=== PATIENT | female | born 2000 | race African-American/Black ===

== ENCOUNTER 2019-01-14 09:52 | Emergency (ER) | payer BC ==
[~2019-01-14] VITALS: Ht 170.2 cm; Wt 77.1 kg
--- NOTE | 2019-01-14 10:57 | PHYS DOC ---
Past Medical History Past Medical History: Other Additional Past Medical Histor: KIDNEY INFECTIONS Past Surgical History: No Surgical History Alcohol Use: Rarely Drug Use: None Adult General Chief Complaint Chief Complaint: HEADACHE HPI HPI Patient is a 18 year old female who presents with complaining of headache. Patient complaining of intermittent episodes of frontal headache for the last 3 or 4 days that usually happens with bending her head as a pressure pain with one episode of nausea. Patient denies blurred vision, focal neuro deficit, fever and chills, history of head injury, history of the same headache or family history of migraine headache. Patient states the pain radiated to anterior side of her neck. Patient rated her pain 6/10 and does not want to have pain medication in ER. Review of Systems Review of Systems Constitutional: Denies fever or chills [] Eyes: Denies change in visual acuity, redness, or eye pain [] HENT: Denies nasal congestion or sore throat [] Respiratory: Denies cough or shortness of breath [] Cardiovascular: No additional information not addressed in HPI [] GI: Denies abdominal pain, nausea, vomiting, bloody stools or diarrhea [] : Denies dysuria or hematuria [] Musculoskeletal: Denies back pain or joint pain [] Integument: Denies rash or skin lesions [] Neurologic: Reports headache, denies focal weakness or sensory changes [] Endocrine: Denies polyuria or polydipsia [] All other systems were reviewed and found to be within normal limits, except as documented in this note. Allergies Allergies Allergies Coded Allergies Type Severity Reaction Last Updated Verified ceftriaxone Allergy Unknown itching, throat swelling 01/14/19 Yes Physical Exam Physical Exam Constitutional: Well developed, well nourished, no acute distress, non-toxic appearance. [] HENT: Normocephalic, atraumatic, bilateral external ears normal, oropharynx moist, no oral exudates, nose normal. [] Eyes: PERRLA, EOMI, conjunctiva normal, no discharge. [] Neck: Normal range of motion, no tenderness, supple, no stridor, no meningeal sign. [] Cardiovascular:Heart rate regular rhythm, no murmur [] Lungs & Thorax: Bilateral breath sounds clear to auscultation [] Abdomen: Bowel sounds normal, soft, no tenderness, no masses, no pulsatile masses. [] Skin: Warm, dry, no erythema, no rash. [] Back: No tenderness, no CVA tenderness. [] Extremities: No tenderness, no cyanosis, no clubbing, ROM intact, no edema. [] Neurologic: Alert and oriented X 3, normal motor function, normal sensory function, no focal deficits noted. [] Psychologic: Affect normal, judgement normal, mood normal. [] Current Patient Data Vital Signs Vital Signs Date Time Temp Pulse Resp B/P (MAP) Pulse Ox O2 Delivery O2 Flow Rate FiO2 01/14/19 11:25 75 14 100 01/14/19 10:20 98.2 120/64 (82) Room Air 98.2 Lab Values Laboratory Tests Test 01/14/19 10:26 POC Urine HCG, Qualitative Hcg negative (Negative) EKG EKG [] Radiology/Procedures Radiology/Procedures [facility] [address] [place] [address] IMAGING REPORT Signed PATIENT: WILNER ARMSTRONG ACCOUNT: [id number] : 2000 LOCATION: ER AGE: 18 SEX: F EXAM STATUS: REG ER ORD. PHYSICIAN: KRISTI PUENTES MD REASON: headache without head injury PROCEDURE: CT HEAD WO CONTRAST CT HEAD WO CONTRAST Indication: Headache, no injury. Exposure: One or more of the following individualized dose reduction techniques were utilized for this examination: 1. Automated exposure control 2. Adjustment of the mA and/or kV according to patient size 3. Use of iterative reconstruction technique. Technique: Standard imaging without intravenous contrast. No evidence of acute intracranial hemorrhage, mass effect, midline shift or abnormal extra-axial fluid collection. Leon-white matter distinction is intact. Ventricles and sulci are symmetric. The orbits are symmetric. No evidence of prominent scalp swelling. The visualized sinuses are clear. No evidence of acute skull abnormality. IMPRESSION: No evidence of acute intracranial hemorrhage. Electronically signed by: Maikel Hollis MD (01/14/2019 11:18 AM) [facility] DICTATED and SIGNED BY: MAIKEL HOLLIS MD DATE: 01/14/19 6923 Course & Med Decision Making Course & Med Decision Making Pertinent Imaging studies reviewed. (See chart for details) Evaluation of patient in ER showed 18-year-old female patient complaining of headache for few days. Patient had unremarkable physical exam and CT of head. 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 Usama Disclaimer Dragon Disclaimer This electronic medical record was generated, in whole or in part, using a voice recognition dictation system. Departure Departure Impression: Primary Impression: Headache Additional Impression: Sinusitis Disposition: HOME, SELF-CARE (at 1129) Condition: STABLE Referrals: NO PCP (PCP) Patient Instructions: Headache and Allergies, Sinusitis Additional Instructions: Drink plenty of liquids Follow-up with your primary care physician in 3-5 days Return to ER if not getting better Follow-up with your eye specialists regarding checking your eyes and possibly changing your eyeglasses Scripts Ibuprofen (IBUPROFEN) 800 Mg Tablet 800 MG PO PRN Q8HRS PRN for INFLAMMATION, #20 TAB Prov: KRISTI PUENTES MD 01/14/19 Amoxicillin (AMOXICILLIN) 500 Mg Capsule 1 CAP PO Q8HRS for infection, #21 CAP Prov: KRISTI PUENTES MD 01/14/19 Problem Qualifiers Primary Impression: Headache Headache type: unspecified Headache chronicity pattern: unspecified pattern Intractability: not intractable Qualified Codes: R51 - Headache Additional Impression: Sinusitis Sinusitis location: unspecified location Chronicity: unspecified Qualified Codes: J32.9 - Chronic sinusitis, unspecified KRISTI PUENTES MD Jan 14, 2019 10:57
--- NOTE | 2019-01-14 11:21 | RAD ---
CT HEAD WO CONTRAST Indication: Headache, no injury. Exposure: One or more of the following individualized dose reduction techniques were utilized for this examination: 1. Automated exposure control 2. Adjustment of the mA and/or kV according to patient size 3. Use of iterative reconstruction technique. Technique: Standard imaging without intravenous contrast. No evidence of acute intracranial hemorrhage, mass effect, midline shift or abnormal extra-axial fluid collection. Leon-white matter distinction is intact. Ventricles and sulci are symmetric. The orbits are symmetric. No evidence of prominent scalp swelling. The visualized sinuses are clear. No evidence of acute skull abnormality. IMPRESSION: No evidence of acute intracranial hemorrhage. Electronically signed by: Maikel Hollis MD (01/14/2019 11:18 AM) [facility]
[2019-01-14 11:25] VITALS: BP 101/61
[2019-01-14] MEDS ORDERED: AMOX500C PO (11:31)
[2019-01-14] MEDS ORDERED: IBUP-1060 PO (11:31)
== END 2019-01-14 11:35 | disposition home or self-care (01) ==
LOC: ER 09:52
DX: J32.9 Chronic sinusitis, unspecified (principal); R51 Headache; R11.0 Nausea; R50.9 Fever, unspecified; Z88.1 Allergy status to other antibiotic agents
CPT/HCPCS: 70450; 81025; 99284-25